=== PATIENT | male | born 1950 | race Caucasian/White ===

== ENCOUNTER 2016-05-27 15:46 | Outpatient (CLI) | payer MEDICARE ==
[2016-05-31 12:02] LABS: HIV-1 p24 ANTIGEN REACTIVE (NONREACTIVE); HIV-1/2 ANTIBODY NON REACTIVE (NONREACTIVE)
[2016-06-03] MEDS ORDERED: PROPOFOL 200 MG/20 ML VIAL IV ONE (11:00)
[2016-06-03] MEDS ORDERED: IV NS 0.9% 1,000 ML IV SCH (12:00)
== END 2016-06-06 16:27 ==
LOC: LAB 15:46
PROVIDERS: ATTEND Legal Medicine
DX: Z75.3 Unavailability and inaccessibility of health-care facilities (principal)
CPT/HCPCS: 87880; J7030; 36415; 86403-TC; J2704